=== PATIENT | male | born 1960 | race Caucasian/White ===

== ENCOUNTER → 2016-07-28 | Day surgery (SDC) | payer MEDICARE, MEDICAID ==
[~2016-07-28] VITALS: Ht 182.9 cm; Wt 105.5 kg
[~2016-07-28] MED LIST: *RESP: ALBUTEROL 2.5 MG/3 ML NEB (PRN) PERIprocedural Use ONLY NEB ONE; ACETAMINOPHEN/HYDROcodone 325 MG/5 MG TAB PO PRN; ASCO500T PO; ATOR20TA15 PO; BISA10SU3 RECTAL; BUPIVACAINE HCL PF 0.25% 30 ML VIAL ONE; BUSP15TA PO; CELE20TA PO; CITA20TA4 PO; CYMB60CA PO; DEXAMETHASONE SOD PHOS 4 MG/ML VIAL ONE; DIAZ10 PO; DO NOT ADM ANY ANTICOAGULANT DRUGS XX PRN; FAMOTIDINE 20 MG/2 ML VIAL ONE; FURO20TA PO; GABA800T PO; INSULIN HUMAN REGULAR 1,000 UNITS/10 ML VIAL SQ PRN; LACTATED RINGER'S 1000 ML INJ 1,000 ML IV ONE; LACTATED RINGER'S 1000 ML IV SCH; LOSA25TA PO; METF500T PO; METH1TAB2 PO; METO25TA6 PO; METOPROLOL TARTRATE 25 MG TAB PO PRN; MIDAZOLAM HCL 2 MG/2 ML VIAL ONE; MILKSUS PO; MORP20SO2 PO; MORPHINE SULFATE 4 MG/ML INJ IV PRN; MORPHINE SULFATE 4 MG/ML INJ ONE; MULTTAB22; OMEP20TA PO; ONDANSETRON HCL 4 MG/2 ML VIAL IV PUSH ONE; ONDANSETRON HCL 4 MG/2 ML VIAL IV PUSH PRN; ONETAB22 PO; OXYC1TAB36 PO; PHENYLEPH/NS 1000 MCG/10 ML SYR IV ONE; POLYPOW5; POLYPOW5 PO; PROPOFOL 200 MG/20 ML AMP IV ONE; RISP1 PO; SENN8.6T15; SODIUM CHLORID 0.9% 500 ML IV SCH; SODIUM CHLORIDE 0.9% INJ 100 ML ONE; SOMA350T PO; TAMS5CAP PO; TEMA15CA PO; TEMA7.5C9 PO; VITA200012 PO; WARF-21 PO; WARF-23 PO; ceFAZolin 1,000 MG/NS 100 ML IV SCH; ceFAZolin INJ 1,000 MG VIAL ONE; ePHEDrine/NS 50 MG/5 ML SYR IV ONE
[2016-07-28 06:43] VITALS: BP 110/69; PULSE 89; RESP 16; TEMP 98.5; O2SAT 97
[2016-07-28 06:58] LABS: AUTOMATED NEUTROPHIL # 4.5 TH/MM3 (1.8-7.7); BASOPHIL # 0.1 TH/MM3 (0-0.2); BASOPHIL % 0.7 % (0.0-2.0); EOSINOPHIL # 0.4 TH/MM3 (0-0.4); EOSINOPHIL % 4.1 % (0.0-4.0); HEMATOCRIT 48.8 % (39.0-51.0); HEMO FLAGS DIFF FINAL; LYMPHOCYTE # 3.7 TH/MM3 (1.0-4.8); MEAN CELL VOLUME 86.4 FL (80.0-100.0); MEAN CORPUSCULAR HEMOGLOBIN 27.6 PG (27.0-34.0); NEUT % 46.2 % (16.0-70.0); PLATELET COUNT 289 TH/MM3 (150-450); RED BLOOD COUNT 5.64 MIL/MM3 (4.50-5.90); RED CELL DISTRIBUTION WIDTH 17.9 % (11.6-17.2); WHITE BLOOD COUNT 9.8 TH/MM3 (4.0-11.0)
--- NOTE | 2016-07-28 10:43 | EKG ---
Date Performed: 07/28/2016 Time Performed: 06:54:18 PTAGE: 56 years EKG: Sinus rhythm NORMAL ECG Compared to prior tracing no significant change PREVIOUS TRACING : 11/03/2006 10.29 DOCTOR: Kwadwo Naik Interpretating Date/Time 07/28/2016 10:41:50
[2016-07-28 13:20] VITALS: BP 120/69; PULSE 110; RESP 18; TEMP 97.8; O2SAT 92
--- NOTE | 2016-07-30 12:39 | MP ---
cc: BREE DANIEL DATE OF SURGERY 07/30/2016 PREOPERATIVE DIAGNOSIS Neurogenic bladder. POSTOPERATIVE DIAGNOSIS Neurogenic bladder. PROCEDURE Cystoscopy with placement of suprapubic tube catheter. SURGEON MD Fredy ANESTHESIA General LMA. FLUIDS 500 cc crystalloid. ESTIMATED BLOOD LOSS No blood loss. COMPLICATIONS No complications. He tolerated the procedure well. DRAINS A 24-Amharic SP tube. CONDITION The patient was awoken and transferred to Recovery in stable condition. INDICATIONS FOR PROCEDURE Agustín Daniel is a 56-year-old male with a history of spinal cord injury with a neurogenic bladder. He has an indwelling Liu catheter which has caused a lot of urethral erosion and recommendation was made to place a suprapubic catheter. Risks and benefits were discussed and he was willing to proceed. PROCEDURE The patient was brought to the operating room, identified by myself as Agustín Daniel. He is placed in dorsal lithotomy position and in Trendelenburg position. He received preprocedure antibiotics and LMA anesthesia was administered. He was prepped in the usual sterile fashion and flexible cystoscopy was performed. Christian-cystoscopy did not show any abnormalities in the bladder. There were a few trabeculations but no bladder tumors or other abnormalities were identified. Using the Lowsley retractor, this was placed into the bladder and it was palpated over the suprapubic area. Using the Bovie cautery, the and area was incised down to the fascia and then the Lowsley retractor popped through the fascia. The 24-Amharic catheter was grasped with the Lowsley and brought into the bladder. Under cystoscopic imaging the balloon was inflated and placed in good position. The catheter was then anchored with 2-0 silk sutures and was in good position and draining clear urine. DISCHARGE INSTRUCTIONS He will follow up in one month in the office to undergo SP tube change. Bree NOGUEIRA/SAMY /10:00 AM /12:32 PM
== END | disposition home or self-care (01) ==
LOC: HSDC 06:18
PROVIDERS: ATTEND Urology
DX: N31.9 Neuromuscular dysfunction of bladder, unspecified (principal); I10 Essential (primary) hypertension
CPT/HCPCS: 00800; 51102; 85025; 93005; 94664; J0690; J1100; J2250; J2270; J2370; J2405; J3010; J7120; J7613; 94150